=== PATIENT | female | born 1945 | race Caucasian/White ===

== ENCOUNTER 2023-03-07 08:00 | Outpatient (CLI) | payer MEDICARE | END 2023-03-07 23:59 | disposition home or self-care (01) | LOC: LAB.S 08:00 | PROVIDERS: ATTEND Physician Assistant | DX: R30.0 Dysuria (principal) | CPT/HCPCS: 87086 ==

== ENCOUNTER 2023-07-25 08:00 | Outpatient (CLI) | payer MEDICARE ==
[2023-07-25 20:16] LABS: BACTERIAL VAGINOSIS DNA NEGATIVE (NEGATIVE); CANDIDA GLABRATA DNA NEGATIVE (NEGATIVE); CANDIDA GROUP DNA NEGATIVE (NEGATIVE); CANDIDA KRUSEI DNA NEGATIVE (NEGATIVE); TRICHOMONAS VAGINALIS DNA NEGATIVE (NEGATIVE)
== END 2023-07-25 23:59 | disposition home or self-care (01) ==
LOC: LAB.S 08:00
PROVIDERS: ATTEND Registered Nurse
DX: R09.81 Nasal congestion (principal); N89.8 Other specified noninflammatory disorders of vagina
CPT/HCPCS: 81514

== ENCOUNTER 2023-07-30 08:00 | Outpatient (CLI) | payer MEDICARE ==
--- NOTE | 2023-07-30 08:17 | XRAY Report ---
PROCEDURE: Chest 2V INDICATIONS: COVID-19 INFECTION TECHNIQUE: 2 views of the chest were acquired. COMPARISON: None. FINDINGS: Surgical changes and devices: None. Lungs and pleura: No pleural effusions or pneumothorax. Lungs are clear. Mediastinum: Mediastinal contours appear normal. Heart size is normal. Bones and chest wall: No suspicious bony lesions. Overlying soft tissues appear unremarkable. IMPRESSION: No acute cardiopulmonary process. Reviewed by: Marcy Randle MD on 07/30/2023 8:15 AM [facility] [place] Approved by: Marcy Randle MD on 07/30/2023 8:15 AM [facility] [place] Station ID: [id number]
== END 2023-07-30 23:59 | disposition home or self-care (01) ==
LOC: DI.S 08:00
PROVIDERS: ATTEND Emergency Medicine
DX: U07.1 COVID-19 (principal)

== ENCOUNTER 2023-09-10 11:19 | Outpatient (CLI) | payer MEDICARE ==
[2023-09-10 15:35] LABS: BASOPHILS % (AUTO) 0.6 %; EOSINOPHILS # (AUTO) 0.1 10^3/uL (0.0-0.7); EOSINOPHILS % (AUTO) 1.4 %; HCT - HEMATOCRIT 37.7 % (37.0-47.0); HGB - HEMOGLOBIN 12.4 g/dL (12.0-16.0); LYMPHOCYTES # (AUTO) 1.8 10^3/uL (1.5-3.5); LYMPHOCYTES % (AUTO) 27.4 %; MEAN CORPUSCULAR HEMOGLOBIN 32.1 pg (27.0-31.0); MEAN CORPUSCULAR HGB CONC 32.9 g/dL (32.0-36.0); MEAN CORPUSCULAR VOLUME 97.7 fL (81.0-99.0); MEAN PLATELET VOLUME 10.2 fL (7.9-10.8); MONOCYTES # (AUTO) 0.6 10^3/uL (0.0-1.0); MONOCYTES % (AUTO) 8.7 %; NEUTROPHILS % (AUTO) 61.6 %; PLT - PLATELET COUNT 241 10^3/uL (130-450); RED BLOOD COUNT 3.86 10^6/uL (4.20-5.40); WHITE BLOOD COUNT 6.5 x10^3/uL (4.8-10.8)
[2023-09-10 15:51] LABS: ESTIMATED AVERAGE GLUCOSE 108 mg/dL (70-100); HEMOGLOBIN A1c% 5.4 % (4.27-6.07)
[2023-09-10 15:52] LABS: % IRON SATURATION 29 % (20-50); ALBUMIN 4.2 g/dL (3.2-5.5); ALBUMIN/GLOBULIN RATIO 1.8 (1.0-2.2); ALKALINE PHOSPHATASE 46 IU/L (42-121); ALT ALANINE AMINOTRANSFERASE 12 IU/L (10-60); AST ASPARTATE AMINOTRANSFERASE 21 IU/L (10-42); BILIRUBIN,TOTAL 0.6 mg/dL (0.2-1.0); BUN - BLOOD UREA NITROGEN 10 mg/dL (6-20); CALCIUM 9.2 mg/dL (8.5-10.3); CARBON DIOXIDE - CO2 28 mmol/L (21-32); CHLORIDE 98 mmol/L (101-111); CHOL/HDL RATIO 1.9 (<4.4); CHOLESTEROL 154 mg/dL; CREATININE 0.7 mg/dL (0.6-1.3); GFR - MDRD 81 (>89); GLUCOSE 95 mg/dL (74-104); HDL CHOLESTEROL 81 mg/dL; IRON 118 ug/dL (50-212); LDL CHOLESTEROL,CALCULATED 58 mg/dL; LDL/HDL RATIO 0.7 (<4.4); POTASSIUM 3.9 mmol/L (3.5-4.5); SODIUM 133 mmol/L (135-145); TOTAL IRON BINDING CAPACITY 403 ug/dL (250-450); TOTAL PROTEIN 6.5 g/dL (6.4-8.9); TRANSFERRIN 288 mg/dL (203-362); TRIGLYCERIDES 77 mg/dL (48-352); VLDL CHOLESTEROL 15 mg/dL
[2023-09-10 16:00] LABS: THYROID STIMULATING HORMONE 1.13 uIU/mL (0.34-5.60)
== END 2023-09-10 11:20 | disposition home or self-care (01) ==
LOC: LAB.S 11:19
PROVIDERS: ATTEND Internal Medicine
DX: D64.9 Anemia, unspecified (principal); R53.83 Other fatigue; Z13.1 Encounter for screening for diabetes mellitus; Z13.220 Encounter for screening for lipoid disorders
CPT/HCPCS: 36415; 80053; 80061; 82728; 83036; 83540; 83721; 84443; 84466; 85025

== ENCOUNTER 2023-12-19 14:31 | Outpatient (CLI) | payer MEDICARE | END 2023-12-19 14:32 | disposition home or self-care (01) | LOC: LAB.R 14:31 | DX: K52.832 Lymphocytic colitis (principal) | CPT/HCPCS: 83993 ==

== ENCOUNTER 2024-01-23 09:25 | Outpatient (CLI) | payer MEDICARE ==
--- NOTE | 2024-01-23 23:21 | XRAY Report ---
PROCEDURE: Cervical Spine 2-3V INDICATIONS: CERVICAL SPINE XRAY TECHNIQUE: 3 view(s) of the cervical spine were acquired. COMPARISON: None. FINDINGS: Bones: There is mild reversal of normal cervical lordosis centered at C4 level. 4 mm anterolisthesis of C3 on C4 is seen. Loss of disc height, degenerative endplate changes and bilateral uncovertebral h ypertrophic changes are seen at C3-4 through C6-7 levels. There is also 5 mm anterolisthesis of C7 on T1. No acute fracture or dislocation. The lateral masses of C1 appear intact on the odontoid view. No suspicious bony lesions. Soft tissues: No prevertebral soft tissue swelling. IMPRESSION: No displaced fracture or traumatic subluxation. Grade 1 spondylolisthesis at C3-4 and C7-T1 levels. D egenerative disc disease throughout cervical spine as above. Reviewed by: Michael Berger MD on 01/23/2024 11:20 PM PDT Approved by: Michael Berger MD on 01/23/2024 11:20 PM PDT Station ID: [id number]
== END 2024-01-23 09:26 | disposition home or self-care (01) ==
LOC: DI.S 09:25
PROVIDERS: ATTEND Registered Nurse
DX: M50.11 Cervical disc disorder with radiculopathy, high cervical region (principal); M50.121 Cervical disc disorder at C4-C5 level with radiculopathy; M50.122 Cervical disc disorder at C5-C6 level with radiculopathy; M50.123 Cervical disc disorder at C6-C7 level with radiculopathy; M43.12 Spondylolisthesis, cervical region; M43.13 Spondylolisthesis, cervicothoracic region

== ENCOUNTER 2024-03-09 12:26 | Outpatient (CLI) | payer MEDICARE | END 2024-03-09 23:59 | disposition critical access hospital (66) | LOC: EMS 12:26 | DX: I10 Essential (primary) hypertension (principal); R42 Dizziness and giddiness; R51.9 Headache, unspecified; R11.0 Nausea | CPT/HCPCS: A0425; A0429 ==

== ENCOUNTER 2024-03-09 12:58 | Inpatient (IN) | payer MEDICARE ==
--- NOTE | 2024-03-09 13:03 | ED Physician Documentation ---
History of Present Illness - Stated complaint Stated Complaint: HTN - Additonal information Additional information: Patient is a 79-year-old female presenting to the emergency department with headache and elevated blood pressure readings. Patient notes symptoms have been going on since 3 days ago. Patient denies any chest pain, shortness of breath. She notes her blood pressure readings have been high in the 170s. She notes overnight she developed neck pain and head pain. She is on lisinopril 20 once a day however took 2 doses last night due to persistently elevated blood pressure readings. She denies missing any doses of lisinopril. She denies any nausea vomiting vision changes lower leg swelling chest pain or shortness of breath associate with her symptoms. She has no history of coronary artery disease. She took meloxicam for her neck pain without significant relief. PD PAST MEDICAL HISTORY - Present Medications Home Medications: Ambulatory Orders Medication Instructions Recorded Confirmed Lisinopril [Zestril] 20 mg PO DAILY 03/09/24 03/09/24 Meloxicam [Mobic] 7.5 mg PO DAILY 03/09/24 03/09/24 - Allergies Allergies/Adverse Reactions: Allergies Allergy/AdvReac Type Severity Reaction Status Date / Time No Known Drug Allergies Allergy Verified 03/09/24 13:12 PD ED PE NORMAL - Vitals Vital signs reviewed: Yes - General General: Alert and oriented X 3 - HEENT HEENT: Atraumatic, PERRL, EOMI, Ears normal (Clear TMs bilaterally no signs of excessive cerumen no bulging or erythema to bilateral TMs.), Other - Neck Neck: Supple, no meningeal sign, Other (Full range of motion of neck reproducible tenderness to right paraspinal cervical muscle tenderness.) - Cardiac Cardiac: RRR, No murmur, No gallop, No rub - Respiratory Respiratory: No respiratory distress, Clear bilaterally - Abdomen Abdomen: Normal bowel sounds, Non tender, Non distended - Back Back: No CVA TTP - Derm Derm: Normal color, Warm and dry, No rash - Extremities Extremities: No deformity - Neuro Neuro: Alert and oriented X 3, natural remedy consultant 2-12 intact, No motor deficit, No sensory deficit, Normal speech, Other (Negative HINTs test. Finger to nose test intact) Eye Opening: Spontaneous Motor: Obeys Commands Verbal: Oriented GCS Score: 15 - Psych Psych: Normal mood, Normal affect Results - Vitals Vitals: Vital Signs - 24 hr 03/09/24 03/09/24 03/09/24 13:02 13:11 13:12 Temperature 36.5 C Heart Rate 78 78 68 Respiratory 16 14 15 Rate Blood Pressure 163/98 H 181/92 H 175/95 H O2 Saturation 98 98 99 03/09/24 15:12 Temperature Heart Rate 65 Respiratory 16 Rate Blood Pressure 161/93 H O2 Saturation 98 Oxygen O2 Source Room air - Labs Labs: Laboratory Tests 03/09/24 03/09/24 03/09/24 13:21 13:21 14:00 Sodium 120 L* Potassium 3.9 Chloride 87 L Carbon Dioxide 24 Anion Gap 9.0 BUN 7 Creatinine 0.6 Estimated GFR (MDRD) 97 Glucose 115 H Calcium 9.5 Magnesium 1.5 L Total Bilirubin 0.8 AST 29 ALT 15 Alkaline Phosphatase 45 Total Protein 6.7 Albumin 4.4 Globulin 2.3 Albumin/Globulin Ratio 1.9 Lipase 23 TSH 1.90 Urine Creatinine 14.9 Urine Sodium 54.0 PD Medical Decision Making - ED course Complexity details: reviewed old records, reviewed results ED course: Patient is a 79-year-old female presenting with past medical history of hypertension no history of alcohol abuse no history of smoking. Patient had headaches that worsened over the last 3 days and today is much worse than normal. She denies any focal neurodeficits she denies any fevers neck pain no difficulty walking. She reports some mild lightheadedness but no dizziness symptoms. Patient's sodium levels returned at 120. No signs of Hyperglycemia. Other electrolytes appear stable. Urine sodium and urine osmolality and serum osmolality labs added onto patient's workup. Patient received 500 cc of fluid here in emergency department however we will hold off on further normal saline treatment at this time while pending workup. CT head and chest x-ray of neck obtained given patient's sudden onset hyponatremia. Concern for possible mass or tumor causing the symptoms. Additionally TSH obtained showing no acute fin dings. CT head showed no acute intracranial findings. Additionally chest x-ray showed no acute cardiopulmonary findings. Patient pain persist despite Reglan and Benadryl treatment here in the emergency department. Patient given a dose of Toradol after blood pressure down trended to the 150s SBP. Discussed with hospitalist Dr. Crooks for admission given new onset hyponatremia. No acute cause for hyponatremia at this time. Patient's hypertension and hyponatremia require further workup that cannot be completed here in the emergency department. Departure - Departure Disposition: [facility] DC/Xfer Clinical Impression: Hyponatremia, Migraine, Hypertension Discharge Date/Time: 03/09/24 18:00
[2024-03-09] MEDS: diphenhydrAMINE INJ 50 MG/ML VIAL IVP STA (13:26)
[2024-03-09] MEDS: SODIUM CHLORIDE 0.9% 1,000 ML IV STA (13:26)
[2024-03-09] MEDS: METOCLOPRAMIDE 10 MG/2 ML VIAL IVP STA (13:27)
[2024-03-09 13:44] LABS: MAGNESIUM 1.5 mg/dL (1.7-2.3)
[2024-03-09 13:52] LABS: ALBUMIN 4.4 g/dL (3.2-5.5); ALBUMIN/GLOBULIN RATIO 1.9 (1.0-2.2); BILIRUBIN,TOTAL 0.8 mg/dL (0.2-1.0); CALCIUM 9.5 mg/dL (8.5-10.3); CREATININE 0.6 mg/dL (0.6-1.3); POTASSIUM 3.9 mmol/L (3.5-4.5); TOTAL PROTEIN 6.7 g/dL (6.4-8.9)
[2024-03-09 14:37] LABS: CREATININE,URINE 14.9 mg/dL
--- NOTE | 2024-03-09 15:56 | XRAY Report ---
PROCEDURE: Chest 1V INDICATIONS: HTN, cp TECHNIQUE: One view of the chest was acquired. COMPARISON: None FINDINGS: Surgical changes and devices: None. Lungs and pleura: No pleural effusions or pneumothorax. Lungs are clear. Mediastinum: Mediastinal contours appear normal. Heart size is normal. Bones and chest wall: No suspicious bony lesions. Overlying soft tissues appear unremarkable. IMPRESSION: No acute cardiopulmonary findings Reviewed by: Salvador Pritchard MD on 03/09/2024 2:55 PM [facility] Approved by: Salvador Pritchard MD on 03/09/2024 2:55 PM [facility] Station ID: [id number]
--- NOTE | 2024-03-09 15:57 | CT Report ---
PROCEDURE: Head WO INDICATIONS: evaluate for mass vs. demylinteation TECHNIQUE: Helical axial CT of the brain was obtained without contrast and reformatted in multiple p lanes. Radiation dose reduction was achieved using automated exposure control or adjustment of mA and /or kV according to patient size. COMPARISON: None FINDINGS: CSF spaces: Ventricles are appropriate in size and position. No hydrocephalus. Basal cisterns unre markable. Brain: No midline shift. No intracranial masses or hemorrhage. Lorenz-white matter interface is norm al. Skull and face: Calvarium and skull base are unremarkable without suspicious lesion. Sinuses: Visualized sinuses and mastoids are clear. IMPRESSION: Unremarkable CT of the brain Reviewed by: Salvador Pritchard MD on 03/09/2024 2:56 PM [facility] Approved by: Salvador Pritchard MD on 03/09/2024 2:56 PM [facility] Station ID: [id number]
[2024-03-09] MEDS ORDERED: ONDANSETRON ODT 4 MG TABLET TL PRN (17:04)
[2024-03-09] MEDS ORDERED: ONDANSETRON 4 MG/2 ML VIAL IVP PRN (17:04)
[2024-03-09] MEDS ORDERED: ACETAMINOPHEN 325 MG TABLET PO PRN (17:04)
[2024-03-09] MEDS ORDERED: hydrALAZINE INJ 20 MG/ML VIAL IVP PRN (17:09)
[2024-03-09] MEDS ORDERED: MAGNESIUM SULFATE 1 GM/2 ML VIAL IVP STA (17:12)
[2024-03-09] MEDS ORDERED: traZODone 50 MG TABLET PO STA (17:42)
--- NOTE | 2024-03-09 17:46 | HISTORY & PHYSICAL EXAMINATION ---
Chief Complaint - Chief Complaint Chief Complaint: Headache History of Present Illness - Admitted From Admitted From:: ED - History Obtained From Records Reviewed: ED History obtained from: Patient - History of Present Illness HPI Comment/Other: Ms. Gerardo is a 79-year-old female presenting to the emergency department with headache and elevated blood pressure readings. She states she woke up with a headache and elevated BP @ 197 systolic at 01:00 this am. She has nausea, no vomiting, with photohobia and left sided headache that radiates from the base of her skull to behind her right ear. She denies phonophobia, vision changes, aura, dizziness, shortness of breath, chest pain, palpitations, or abdominal pain. She states she had 3 BMs last night which is more than normal, denies diarrhea or constipation.Patient denies any chest pain, shortness of breath. She notes her blood pressure readings have been high in the 170s. She is on lisinopril 20 once a day however took 2 doses last night due to persistently elevated blood pressure readings. She denies missing any doses of lisinopril. 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 She had been taking trazadone 1.5 tabs at night for insomnia and depression and stopped this 3 days ago as she was told it was not compatible with meloxicam. She also has a new puppy which she got 4 days ago and it has been keeping her up at night. She reports feeling unusually tired yesterday and got some pedialyte as she was feeling run down. She denies any recent illness, weight loss, changes in diet, increase in thirst, urinary frequency, dysuria, or fever. She has a hx of migraine headaches and takes fiorinol with codeine but it only works if she takes it at the beginnin. They usually last 3 days when she gets them and she has about 4 per year once she was postmenopausal. She does not take any migraine prevention medication. She is being admitted for hyponatremia and will be on a fluid restriction. She still complains of a 5/10 headache, down from an 8/10, and feels significantly improved after getting Benadryl and Reglan in the ED along with a liter of fluid. History - Past Medical History Cardiovascular: reports: Hypertension GI: reports: Other (Microscopic colitis) JEWEL GRINDER: reports: Other Psych: reports: Depression, Other (Insomnia) Musculoskeletal: reports: Osteoarthritis (C3-C7 w/ radiculopathy) MRSA Hx?: No - Past Surgical History Ortho: reports: Knee replacement (left), Other (Left bunion correction) /JEWEL GRINDER: reports: Hysterectomy (Total) HEENT: reports: Tonsil/Adenoidectomy (As a child) - Family & Social History Family History: Mother: Living arrangement: At home Living Situation: Alone Social History Notes: Lives alone. Used to live with her mother before she . Sturggled with depression and anxiety after her mother's . Her son, Roberto Mcgee ([phone]) lives nearby in [place] and is her DPOA. She has a new puppy. - Substance History Use: Uses substance without health or social issues: Alcohol (Single wine spritzer most evenings) Abuse: Recurrent use of substance despite neg consequences: NONE Dependence: Experiences withdrawal or developed tolerances: NONE - POLST Patient has POLST: No POLST Status: Full Code (Roberto Mcgee (son) DPOA ([phone])) Meds/Allgy - Home Medications Home Medications: Ambulatory Orders Medication Instructions Recorded Confirmed Lisinopril [Zestril] 20 mg PO DAILY 03/09/24 03/09/24 Meloxicam [Mobic] 7.5 mg PO DAILY 03/09/24 03/09/24 - Allergies Allergies/Adverse Reactions: Allergies Allergy/AdvReac Type Severity Reaction Status Date / Time No Known Drug Allergies Allergy Verified 03/09/24 13:12 Review of Systems - Constitutional Constitutional: reports: Fatigue, Chills. denies: Fever, Weakness, Poor appetite, Weight loss - Eyes Eyes: denies: Pain, Blurred vision, Spots in vision, Vision loss - Ears, Nose & Throat Ears, Nose & Throat: denies: Ear pain, Tinnitus, Vertigo, Nasal discharge, Sore throat - Cardiovascular Cariovascular: denies: Palpitations, Chest pain, Edema, Lightheadedness, Syncope - Respiratory Respiratory: denies: Cough, Wheezing - Gastrointestinal Gastrointestinal: reports: Nausea. denies: Abdominal pain, Constipation, Diarrhea, Change in bowel habits, Rectal bleeding, Black stools, Vomiting - Genitourinary Genitourinary: denies: Dysuria, Frequency, Incontinence - Musculoskeletal Musculoskeletal: reports: Other (Neck pain). denies: Muscle pain, Joint pain - Integumentary Integumentary: denies: Rash, Pruritis, Lesions - Neurological Neurological: reports: Headache. denies: Focal weakness, Dizziness, Numbness, Memory problems, Seizures - Psychiatric Psychiatric: denies: Depression, Anxiety - Endocrine Endocrine: reports: Intolerance to cold, Intolerance to heat. denies: Polyuria, Polydypsia, Polyphagia - Hematologic/Lymphatic Hematologic/Lymphatic: reports: Anemia, Bruising. denies: Bleeding tendencies Prior Level of Functionality: Independent. Drives and cares for herself. Exam - Vital Signs Reviewed Vital Signs: Yes Vital Signs: Vital Signs x48h Temp Pulse Resp BP Pulse Ox 03/09/24 15:12 65 16 161/93 H 98 03/09/24 13:12 68 15 175/95 H 99 03/09/24 13:11 78 14 181/92 H 98 03/09/24 13:02 36.5 C 78 16 163/98 H 98 - Physical Exam General Appearance: positive: No acute distress, Alert, Other (79 year old thin woman) Eyes Bilateral: positive: Normal inspection, PERRL ENT: positive: No signs of dehydration Neck: positive: Thyroid nml, No JVD, Trachea midline, Other (Tenderness cervical paraspinal muscles on right) Respiratory: positive: Chest non-tender, No respiratory distress, Breath sounds nml. negative: Wheezes, Rales, Rhonchi Cardiovascular: positive: Regular rate & rhythm, No murmur, No gallop. negative: Tachycardia, Bradycardia Peripheral Pulses: positive: 2+ Abdomen: positive: Non-tender, No organomegaly, Nml bowel sounds, No distention. negative: Guarding, Rebound Back: positive: Nml inspection Skin: positive: Color nml, No rash, Warm, Dry Extremities: positive: Non-tender, Nml appearance, No pedal edema Neurologic/Psychiatric: positive: Oriented x3, CN's nml (2-12), Motor nml, Sensation nml, Mood/affect nml Sepsis Event Note (H) - Evaluation Current Stage of Sepsis: Ruled out Conclusion/Plan - Problem List (1) Migraine Conclusion/Plan: History of migraine headaches, left sided, for which she takes Fiorinol with codeine. This only works if she takes it at the beginning of a headache. Otherwise, they last for 3 days, sometimes with visual aura or visual disturbances. Since menopause, she gets about 4 migraines per year and is not on any preventive medication. Her headache today is consistent with her previous migraines, including nausea and photophobia, and started at 01:00. She recieved Benadryl, Reglan, and a 1L NS in the ED. She is feeling much better and rates her headache at a 5/10, down from an 8/10, and her nausea has resolved. I will give her Fioricet 1 tablet q 4 hrs PRN for her headache with PRN Reglan as needed for nausea. (2) Hyponatremia Conclusion/Plan: She is hyponatremic at 120, likely due to malnutrition and drinking lots of water. She denies any recent changes in urinary frequency or volume. She has not had any recent increases in thirst or changes in dietary habits. I will place her on a fluid restriction and monitor her sodium daily. (3) Hypertension Conclusion/Plan: History of HTN and takes lisinopril 20 mg daily. She reports systolic BP in the 170's over the past few days and 197 last night. She took a double dose of her lisinopril as she was very worried about the elevated BP last night. BP was 181/92 in the ED. It has come down to 150/87 with management of her headache and fluids. I will continue her lisinopril 20 mg QD and PRN labetolol 10 mg IVP q 6 hrs for systolic BP >180. I will also work to manage her neck pain and headache which are likely contributing to her hypertension. (4) Cervical radiculopathy Conclusion/Plan: Diagnosed with cervical arthritis with radiculopathy C3-C7 with x-ray on 01/22/24. She was started on meloxicam 7.5 mg QD and took her first dose yesterday evening. She was told to stop taking her trazadone when she started taking the meloxicam and stopped this 3 days ago. I will continue her meloxicam and start her on methocarbamol 1,000 mg q 8 hrs for muscle tension. (5) Hypomagnesemia Conclusion/Plan: She is noted to have a low magnesium at 1.5 mg. I will replace this orally and recheck it tomorrow. (6) Insomnia Conclusion/Plan: She reports disrupted sleep for the past 3 mights due to her new puppy. She also stopped her trazadone, which she was taking 1.5 tabs at night, 3 days ago. She took the trazadone for her insomnia and anxiety and it worked well for her. Disrputed sleep may have triggered her migraine headache and elevated BP. There is not contraindication for trazadone with meloxicam so I will restart her evening trazadone at 75 mg q HS. (7) Protein-calorie malnutrition, moderate Conclusion/Plan: She is thin with a BMI of 18.9. She reports eating lots of salads, fuits and v egetables and drinking lots of water. She gets her protein from eggs, chicken, fish and nuts. It is likely that inadequate intake combined with lots of water underlies her hyponatremia. I will order a regular diet and have her consult with nutrition. - Lab Results Fish Bones: 03/10/24 04:48 03/10/24 04:48 - Diagnostic Imaging Results Diagnostic Imaging Results: positive: Final report reviewed Diagnostic Imaging Results Comments: Head CT: No abnormal findings CXR: no abnormal findings Core Measures - Anticipated LOS I expect patient to be DC'd or transferred within 96 hours.: Yes - DVT/VTE - Prophylaxis VTE/DVT Device ordered at admit?: No VTE/DVT Prophylaxis med ordered at admit?: Yes
[2024-03-09] MEDS ORDERED: SODIUM CHLORIDE 0.9% 1,000 ML IV SCH (18:00)
[2024-03-09] MEDS: BUTALB/ACETAM/CAFF 50/325/40MG TABLET PO PRN (18:25)
[2024-03-09] MEDS: methocarbamoL 500 MG TABLET PO PRN (18:25)
[2024-03-09] MEDS: MAGNESIUM OXIDE 400 MG TABLET PO SCH (18:51)
[2024-03-09] MEDS: LABETALOL 20 MG/4 ML SYRINGE IVP SCH (18:52)
[2024-03-09] MEDS: traZODone 50 MG TABLET PO SCH (20:38)
[2024-03-09] MEDS: DESMOPRESSIN 4 MCG/ML AMP IVP SCH (21:50)
[2024-03-09] MEDS: SODIUM CHLORIDE FLUSH 0.9% 10 ML SYRINGE IVP PRN (21:50)
[2024-03-09] MEDS: SODIUM CHLORIDE 0.9% 500 ML IV ONE (22:15)
[2024-03-10 05:22] LABS: BASOPHILS % (AUTO) 0.6 %; EOSINOPHILS # (AUTO) 0.1 10^3/uL (0.0-0.7); EOSINOPHILS % (AUTO) 0.9 %; HCT - HEMATOCRIT 32.9 % (37.0-47.0); HGB - HEMOGLOBIN 11.7 g/dL (12.0-16.0); LYMPHOCYTES # (AUTO) 1.9 10^3/uL (1.5-3.5); LYMPHOCYTES % (AUTO) 34.9 %; MEAN CORPUSCULAR HEMOGLOBIN 33.1 pg (27.0-31.0); MEAN CORPUSCULAR HGB CONC 35.6 g/dL (32.0-36.0); MEAN CORPUSCULAR VOLUME 93.2 fL (81.0-99.0); MEAN PLATELET VOLUME 9.3 fL (7.9-10.8); MONOCYTES # (AUTO) 0.7 10^3/uL (0.0-1.0); MONOCYTES % (AUTO) 13.7 %; NEUTROPHILS # (AUTO) 2.7 10^3/uL (1.5-6.6); NEUTROPHILS % (AUTO) 49.7 %; PLT - PLATELET COUNT 203 10^3/uL (130-450); RED BLOOD COUNT 3.53 10^6/uL (4.20-5.40); RED CELL DISTRIBUTION WIDTH 13.1 % (12.0-15.0); WHITE BLOOD COUNT 5.4 x10^3/uL (4.8-10.8)
[2024-03-10 05:31] LABS: ALBUMIN 3.5 g/dL (3.2-5.5); CALCIUM 8.3 mg/dL (8.5-10.3); CREATININE 0.6 mg/dL (0.6-1.3); MAGNESIUM 1.7 mg/dL (1.7-2.3); PHOSPHORUS 3.2 mg/dL (2.5-5.0); POTASSIUM 3.8 mmol/L (3.5-4.5)
[2024-03-10 05:49] LABS: THYROID STIMULATING HORMONE 2.04 uIU/mL (0.34-5.60)
[2024-03-10] MEDS: SODIUM CHLORIDE FLUSH 0.9% 10 ML SYRINGE IVP SCH (06:15)
[2024-03-10] MEDS: MELOXICAM 7.5 MG TABLET PO SCH (08:20)
[2024-03-10] MEDS: ENOXAPARIN 40 MG/0.4 ML SYRINGE SUBQ SCH (08:20)
[2024-03-10] MEDS ORDERED: lisinopriL 20 MG TABLET PO SCH (09:00)
--- NOTE | 2024-03-10 10:17 | PROVIDER PROGRESS NOTE ---
Subjective - Prog Note Date Prog Note Date: 03/10/24 Prog Note Time: 08:45 - Subjective Pt reports feeling: No change Subjective: Ms. Gerardo is a 79-year-old female presenting to the emergency department with headache and elevated blood pressure readings yesterday. She states she woke up with a headache and elevated BP @ 197 systolic at 01:00 on 03/09. She had nausea, no vomiting, with photohobia and left sided headache that radiated from the base of her skull to behind her right ear. She denies phonophobia, vision changes, a ura, dizziness, shortness of breath, chest pain, palpitations, or abdominal pain. She states she had 3 BMs last night which is more than normal, denies diarrhea or constipation. Patient denies any chest pain, shortness of breath. She notes her blood pressure readings have been high in the 170s. She is on lisinopril 20 once a day however took 2 doses last night due to persistently elevated blood pressure readings. She denies missing any doses of lisinopril. 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 She had been taking trazadone 1.5 tabs at night for insomnia and depression and stopped this 3 days ago as she was told it was not compatible with meloxicam. She also has a new puppy which she got 4 days ago and it has been keeping her up at night. She reported feeling unusually tired 03/08 and got some pedialyte as she was feeling run down. She denies any recent illness, weight loss, changes in diet, increase in thirst, urinary frequency, dysuria, or fever. She has a hx of migraine headaches and takes fiorinol with codeine but it only works if she takes it at the beginning. They usually last 3 days when she gets them and she has had about 4 per year once she was postmenopausal. She does not take any migraine prevention medication. She was being admitted for hyponatremia and on a fluid restriction. She felt significantly improved after getting Benadryl and Reglan in the ED along with a liter of fluid. Last night, she recieved additional fluids as her BP was low, likely due to her double dose of lisinopril. Her sodium corrected too fast from 120 to 130 and DDAVP was given. Today, she is oriented and continues to have a headache, reports it has increased again, right sided, from behind her eye to the base of her skull with increasing photophobia. She denies nausea and has no focal neuro deficits. She denies chest pain, shortness of breath, abdominal pain, diarrhea, dysuria, fever, or chills. Current Medications - Current Medications Current Medications: Active Medications Generic Name Dose Route Start Last Admin Trade Name Freq PRN Reason Stop Dose Admin Acetaminophen 650 mg 03/09/24 17:04 Acetaminophen 325 Mg Tablet PO Q4HR PRN Pain 1 to 4, or Fever Acetaminophen/Butalbital/Caffeine 1 tab 03/09/24 17:39 03/10/24 08:20 Butalb/Acetam/Caff 50/325/40mg Tablet PO 1 tab Q4H PRN Administration HEADACHE Desmopressin Acetate 2 mcg 03/09/24 22:00 03/09/24 21:50 Desmopressin 4 Mcg/Ml Amp IVP 03/10/24 21:59 2 mcg ONCE USAMA Administration Enoxaparin Sodium 40 mg 03/10/24 09:00 03/10/24 08:20 Enoxaparin 40 Mg/0.4 Ml Syringe SUBQ 40 mg DAILY USAMA Administration Labetalol HCl 10 mg 03/09/24 18:00 03/10/24 06:22 Labetalol 20 Mg/4 Ml Syringe IVP Not Given Q6H USAMA Magnesium Oxide 400 mg 03/09/24 19:00 03/10/24 08:20 Magnesium Oxide 400 Mg Tablet PO 400 mg DAILYWM USAMA Administration Meloxicam 7.5 mg 03/10/24 09:00 03/10/24 08:20 Meloxicam 7.5 Mg Tablet PO 7.5 mg DAILY USAMA Administration Methocarbamol 1,000 mg 03/09/24 17:41 03/09/24 18:25 Methocarbamol 500 Mg Tablet PO 1,000 mg Q8H PRN Administration HEADACHE Metoclopramide HCl 10 mg 03/09/24 17:47 Metoclopramide 10 Mg/2 Ml Vial IVP Q6H PRN HEADACHE Ondansetron HCl 4 mg 03/09/24 17:04 Ondansetron Odt 4 Mg Tablet TL Q6HR PRN Nausea / Vomiting Ondansetron HCl 4 mg 03/09/24 17:04 Ondansetron 4 Mg/2 Ml Vial IVP Q6HR PRN Nausea / Vomiting Sodium Chloride 10 ml 03/09/24 17:04 03/09/24 21:50 Sodium Chloride Flush 0.9% 10 Ml Syringe IVP 10 ml PRN PRN Administration NEEDED PER PROVIDER ORDERS Sodium Chloride 10 ml 03/10/24 01:00 03/10/24 08:21 Sodium Chloride Flush 0.9% 10 Ml Syringe IVP 10 ml 0100,0900,1700 USAMA Administration Trazodone HCl 75 mg 03/09/24 21:00 03/09/24 20:38 Trazodone 50 Mg Tablet PO 75 mg QPM USAMA Administration Lisinopril [Zestril] 20 mg PO DAILY 03/09/24 Meloxicam [Mobic] 7.5 mg PO DAILY 03/09/24 Objective - Vital Signs/Intake & Output Reviewed Vital Signs: Yes Vital Signs: Vital Signs x48h Temp Pulse Resp BP Pulse Ox 03/10/24 07:17 36.6 C 73 16 138/73 H 98 03/10/24 06:09 36.7 C 65 14 123/78 97 Intake & Output: Intake & Output 03/07/24 03/08/24 03/09/24 03/10/24 23:59 23:59 23:59 23:59 Intake Total 1750 100 Balance 1750 100 - Objective General Appearance: positive: No acute distress, Alert (Thin 79 y/o female) Eyes Bilateral: positive: Normal inspection Neck: positive: No JVD, Trachea midline, Other (Tenderness to palpation right lateral neck muscles) Respiratory: positive: Chest non-tender, No respiratory distress, Breath sounds nml. negative: Wheezes, Rales, Rhonchi Cardiovascular: positive: Regular rate & rhythm, No murmur, No gallop Peripheral Pulses: 2+ Radial (R), 2+ Radial (L), 2+ Dorsalis pedis (R), 2+ Dorsalis pedis (L) Abdomen: positive: Non-tender, No organomegaly, Nml bowel sounds, No distention. negative: Guarding, Rebound Back: positive: Nml inspection Skin: positive: Color nml, No rash, Warm, Dry Extremities: positive: Nml appearance, No pedal edema Neurologic/Psychiatric: positive: Oriented x3, CN's nml (2-12), Motor nml, Sensation nml, Mood/affect nml - Lab Results Fish Bones: 03/10/24 04:48 03/10/24 08:14 Other Labs: Lab Results x24hrs 03/10/24 03/10/24 03/10/24 Range/Units 08:14 04:48 04:48 WBC 5.4 (4.8-10.8) x10^3/uL RBC 3.53 L (4.20-5.40) 10^6/uL Hgb 11.7 L (12.0-16.0) g/dL Hct 32.9 L (37.0-47.0) % MCV 93.2 (81.0-99.0) fL MCH 33.1 H (27.0-31.0) pg MCHC 35.6 (32.0-36.0) g/dL RDW 13.1 (12.0-15.0) % Plt Count 203 (130-450) 10^3/uL MPV 9.3 (7.9-10.8) fL Neut # (Auto) 2.7 (1.5-6.6) 10^3/uL Lymph # (Auto) 1.9 (1.5-3.5) 10^3/uL [place] # (Auto) 0.7 (0.0-1.0) 10^3/uL Eos # (Auto) 0.1 (0.0-0.7) 10^3/uL Baso # (Auto) 0.0 (0.0-0.1) 10^3/uL Absolute Nucleated RBC 0.00 x10^3/uL Nucleated RBC % 0.0 /100WBC Sodium 128 L 128 L (135-145) mmol/L Potassium (3.5-4.5) mmol/L Chloride (101-111) mmol/L Carbon Dioxide (21-32) mmol/L Anion Gap (6-13) BUN (6-20) mg/dL Creatinine (0.6-1.3) mg/dL Estimated GFR (MDRD) (>89) Glucose (74-104) mg/dL Calcium (8.5-10.3) mg/dL Phosphorus (2.5-5.0) mg/dL Magnesium (1.7-2.3) mg/dL Total Bilirubin (0.2-1.0) mg/dL AST (10-42) IU/L ALT (10-60) IU/L Alkaline Phosphatase (42-121) IU/L Total Protein (6.4-8.9) g/dL Albumin (3.2-5.5) g/dL Globulin (2.1-4.2) g/dL Albumin/Globulin Ratio (1.0-2.2) Lipase (11-82) U/L TSH (0.34-5.60) uIU/mL Cortisol AM Sample ug/dL Urine Creatinine mg/dL Urine Sodium mmol/L 03/10/24 03/10/24 03/09/24 Range/Units 04:48 00:17 21:18 WBC (4.8-10.8) x10^3/uL RBC (4.20-5.40) 10^6/uL Hgb (12.0-16.0) g/dL Hct (37.0-47.0) % MCV (81.0-99.0) fL MCH (27.0-31.0) pg MCHC (32.0-36.0) g/dL RDW (12.0-15.0) % Plt Count (130-450) 10^3/uL MPV (7.9-10.8) fL Neut # (Auto) (1.5-6.6) 10^3/uL Lymph # (Auto) (1.5-3.5) 10^3/uL [place] # (Auto) (0.0-1.0) 10^3/uL Eos # (Auto) (0.0-0.7) 10^3/uL Baso # (Auto) (0.0-0.1) 10^3/uL Absolute Nucleated RBC x10^3/uL Nucleated RBC % /100WBC Sodium 128 L 129 L 128 L (135-145) mmol/L Potassium 3.8 (3.5-4.5) mmol/L Chloride 98 L (101-111) mmol/L Carbon Dioxide 25 (21-32) mmol/L Anion Gap 5.0 L (6-13) BUN 9 (6-20) mg/dL Creatinine 0.6 (0.6-1.3) mg/dL Estimated GFR (MDRD) 97 (>89) Glucose 107 H (74-104) mg/dL Calcium 8.3 L (8.5-10.3) mg/dL Phosphorus 3.2 (2.5-5.0) mg/dL Magnesium 1.7 (1.7-2.3) mg/dL Total Bilirubin (0.2-1.0) mg/dL AST (10-42) IU/L ALT (10-60) IU/L Alkaline Phosphatase (42-121) IU/L Total Protein (6.4-8.9) g/dL Albumin 3.5 (3.2-5.5) g/dL Globulin (2.1-4.2) g/dL Albumin/Globulin Ratio (1.0-2.2) Lipase (11-82) U/L TSH 2.04 (0.34-5.60) uIU/mL Cortisol AM Sample 9.9 ug/dL Urine Creatinine mg/dL Urine Sodium mmol/L 03/09/24 03/09/24 03/09/24 Range/Units 20:29 14:00 13:21 WBC (4.8-10.8) x10^3/uL RBC (4.20-5.40) 10^6/uL Hgb (12.0-16.0) g/dL Hct (37.0-47.0) % MCV (81.0-99.0) fL MCH (27.0-31.0) pg MCHC (32.0-36.0) g/dL RDW (12.0-15.0) % Plt Count (130-450) 10^3/uL MPV (7.9-10.8) fL Neut # (Auto) (1.5-6.6) 10^3/uL Lymph # (Auto) (1.5-3.5) 10^3/uL [place] # (Auto) (0.0-1.0) 10^3/uL Eos # (Auto) (0.0-0.7) 10^3/uL Baso # (Auto) (0.0-0.1) 10^3/uL Absolute Nucleated RBC x10^3/uL Nucleated RBC % /100WBC Sodium 130 L (135-145) mmol/L Potassium (3.5-4.5) mmol/L Chloride (101-111) mmol/L Carbon Dioxide (21-32) mmol/L Anion Gap (6-13) BUN (6-20) mg/dL Creatinine (0.6-1.3) mg/dL Estimated GFR (MDRD) (>89) Glucose (74-104) mg/dL Calcium (8.5-10.3) mg/dL Phosphorus (2.5-5.0) mg/dL Magnesium (1.7-2.3) mg/dL Total Bilirubin (0.2-1.0) mg/dL AST (10-42) IU/L ALT (10-60) IU/L Alkaline Phosphatase (42-121) IU/L Total Protein (6.4-8.9) g/dL Albumin (3.2-5.5) g/dL Globulin (2.1-4.2) g/dL Albumin/Globulin Ratio (1.0-2.2) Lipase (11-82) U/L TSH 1.90 (0.34-5.60) uIU/mL Cortisol AM Sample ug/dL Urine Creatinine 14.9 mg/dL Urine Sodium 54.0 mmol/L 03/09/24 Range/Units 13:21 WBC (4.8-10.8) x10^3/uL RBC (4.20-5.40) 10^6/uL Hgb (12.0-16.0) g/dL Hct (37.0-47.0) % MCV (81.0-99.0) fL MCH (27.0-31.0) pg MCHC (32.0-36.0) g/dL RDW (12.0-15.0) % Plt Count (130-450) 10^3/uL MPV (7.9-10.8) fL Neut # (Auto) (1.5-6.6) 10^3/uL Lymph # (Auto) (1.5-3.5) 10^3/uL [place] # (Auto) (0.0-1.0) 10^3/uL Eos # (Auto) (0.0-0.7) 10^3/uL Baso # (Auto) (0.0-0.1) 10^3/uL Absolute Nucleated RBC x10^3/uL Nucleated RBC % /100WBC Sodium 120 L* (135-145) mmol/L Potassium 3.9 (3.5-4.5) mmol/L Chloride 87 L (101-111) mmol/L Carbon Dioxide 24 (21-32) mmol/L Anion Gap 9.0 (6-13) BUN 7 (6-20) mg/dL Creatinine 0.6 (0.6-1.3) mg/dL Estimated GFR (MDRD) 97 (>89) Glucose 115 H (74-104) mg/dL Calcium 9.5 (8.5-10.3) mg/dL Phosphorus (2.5-5.0) mg/dL Magnesium 1.5 L (1.7-2.3) mg/dL Total Bilirubin 0.8 (0.2-1.0) mg/dL AST 29 (10-42) IU/L ALT 15 (10-60) IU/L Alkaline Phosphatase 45 (42-121) IU/L Total Protein 6.7 (6.4-8.9) g/dL Albumin 4.4 (3.2-5.5) g/dL Globulin 2.3 (2.1-4.2) g/dL Albumin/Globulin Ratio 1.9 (1.0-2.2) Lipase 23 (11-82) U/L TSH (0.34-5.60) uIU/mL Cortisol AM Sample ug/dL Urine Creatinine mg/dL Urine Sodium mmol/L ABX Reporting Has patient been on IV antibiotics over the past 48 hours?: Yes Sepsis Event Note (H) - Evaluation Current Stage of Sepsis: Ruled out Assessment/Plan - Problem List (1) Migraine Impression: History of migraine headaches, right sided, for which she takes Fiorinol with codeine. This only works if she takes it at the beginning of a headache. Otherwise, they last for 3 days, sometimes with visual aura or visual disturbances. Since menopause, she gets about 4 migraines per year and is not on any preventive medication. Her headache is consistent with her previous migraines, including nausea and photophobia, and started at 01:00 on 03/09. She recieved Benadryl, Reglan, and a 1L NS in the ED on 03/09. She is felt much better and rated her headache at a 5/10, down from an 8/10, and her nausea has resolved. She has Fioricet 1 tablet q 4 hrs PRN for her headache with PRN Reglan as needed for nausea. Today, she states her headache has increased and radiates from the base of her skull to the right side of her head behind her eye with worsening photophobia. She has not had any Fioricet or Reglan today. I will continue her medications today and expect her headache may persist for another day based on her history. (2) Hyponatremia Impression: She was hyponatremic at 120, likely due to malnutrition and drinking lots of water, on 03/09. She denies any recent changes in urinary frequency or volume. She has not had any recent increases in thirst or changes in dietary habits. She is on fluid restrictions. Her BP dropped overnight and she was given fluids, likely due to her double dose of lisinopril. Her sodium jumped to 130 and she was given DDAVP to control the increase. Her urine sodium was 54, TSH and cortisol were normal, making decreased dietary intake and malnutrition the most likely cause of her hyponatremia. She has no acute neuro findings or changes in mentation. I will continue her fluid restriction and monitor her sodium. (3) Hypertension Impression: History of HTN and takes lisinopril 20 mg daily. She reports systolic BP in the 170's over the past few days and 197 the night of 03/08. She took a double dose of her lisinopril as she was very worried about the elevated BP last night. BP was 181/92 in the ED. It has come down to 150/87 with management of her headache and fluids. I will continue her lisinopril 20 mg QD and PRN labetolol 10 mg IVP q 6 hrs for systolic BP >180. I will also work to manage her neck pain and headache which are likely contributing to her hypertension. Her BP dropped overnight, likely due to her double dose of lisinopril. She received fluids and it has been stable today. (4) Cervical radiculopathy Impression: Diagnosed with cervical arthritis with radiculopathy C3-C7 with x-ray on 01/22/24. She was started on meloxicam 7.5 mg QD and took her first dose yesterday evening. She was told to stop taking her trazadone when she started taking the meloxicam and stopped this 3 days ago. I will continue her meloxicam and start h er on methocarbamol 1,000 mg q 8 hrs for muscle tension. (5) Hypomagnesemia Impression: Resolved. She was noted to have a low magnesium at 1.5 mg on admission. This was replaced orally and it was 1.7 today. (6) Insomnia Impression: She reports disrupted sleep for the past 3 mights due to her new puppy prior to her admission. She also stopped her trazadone, which she was taking 1.5 tabs at night, 3 days before admission. She took the trazadone for her insomnia and anxiety and it worked well for her. Disrupted sleep may have triggered her migraine headache and elevated BP. There is not contraindication for trazadone with meloxicam so I will restart her evening trazadone at 75 mg q HS. She states the trazadone improved her sleep last night. I will continue it. (7) Protein-calorie malnutrition, moderate Impression: She is thin with a BMI of 18.9. She reports eating lots of salads, fuits and vegetables and drinking lots of water. She gets her protein from eggs, chicken, fish and nuts. It is likely that inadequate intake combined with lots of water underlies her hyponatremia. I will order a regular diet and have her consult with nutrition.
[2024-03-10] MEDS: METOCLOPRAMIDE 10 MG/2 ML VIAL IVP PRN (10:49)
[2024-03-10] MEDS ORDERED: LABETALOL 20 MG/4 ML SYRINGE IVP PRN (13:40)
--- NOTE | 2024-03-10 16:05 | PHARMACY PROGRESS NOTE ---
- Best Possible Medication History Admit Date and Time: 03/09/24 0239 Processed by: Pharmacy Medications reviewed in ED?: No Medication History completed: Yes Patient Interview: Completed Secondary Source(s): Pharmacy records, Insurance records As the person ultimately responsible for medication therapy, providers are able to order a medication from an existing home medication list in [facility] via the "Reconcile Routine" prior to Confirmation of that medication by family readiness support assistant. Such practice is discouraged except when the physician, in their clinical judgment, deems that a medical need exists for a medication without regard to previous use.
[2024-03-11 06:21] LABS: BASOPHILS % (AUTO) 0.8 %; EOSINOPHILS # (AUTO) 0.1 10^3/uL (0.0-0.7); EOSINOPHILS % (AUTO) 2.7 %; HGB - HEMOGLOBIN 11.6 g/dL (12.0-16.0); LYMPHOCYTES # (AUTO) 2.6 10^3/uL (1.5-3.5); LYMPHOCYTES % (AUTO) 49.4 %; MEAN CORPUSCULAR HEMOGLOBIN 32.1 pg (27.0-31.0); MEAN CORPUSCULAR HGB CONC 34.1 g/dL (32.0-36.0); MEAN CORPUSCULAR VOLUME 94.2 fL (81.0-99.0); MEAN PLATELET VOLUME 9.2 fL (7.9-10.8); MONOCYTES # (AUTO) 0.6 10^3/uL (0.0-1.0); MONOCYTES % (AUTO) 11.2 %; NEUTROPHILS # (AUTO) 1.9 10^3/uL (1.5-6.6); NEUTROPHILS % (AUTO) 35.7 %; PLT - PLATELET COUNT 205 10^3/uL (130-450); RED BLOOD COUNT 3.61 10^6/uL (4.20-5.40); RED CELL DISTRIBUTION WIDTH 12.8 % (12.0-15.0); WHITE BLOOD COUNT 5.2 x10^3/uL (4.8-10.8)
[2024-03-11 08:50] LABS: ALBUMIN 3.4 g/dL (3.2-5.5); CALCIUM 7.9 mg/dL (8.5-10.3); CREATININE 0.6 mg/dL (0.6-1.3); MAGNESIUM 1.6 mg/dL (1.7-2.3); PHOSPHORUS 2.3 mg/dL (2.5-5.0); POTASSIUM 3.4 mmol/L (3.5-4.5)
[2024-03-11] MEDS: SODIUM CHLORIDE 1 GM TABLET PO SCH (09:04)
--- NOTE | 2024-03-11 13:21 | PROVIDER PROGRESS NOTE ---
Subjective - Prog Note Date Prog Note Date: 03/11/24 Prog Note Time: 13:15 - Subjective Pt reports feeling: Improved Subjective: The patient is up ambulating about her room. She says that she is feeling much better this morning. She denies fever or chills. No chest pain or heart palpitations. Her headache is much improved. Blood pressure is improved. She has had no nausea vomiting or diarrhea. No urinary complaints. Unfortunately her sodium level actually went all the way down to 124. We discussed keeping her in the hospital for further treatment. She is understandably disappointed but is in agreement Current Medications - Current Medications Current Medications: Active Medications Generic Name Dose Route Start Last Admin Trade Name Freq PRN Reason Stop Dose Admin Acetaminophen 650 mg 03/09/24 17:04 Acetaminophen 325 Mg Tablet PO Q4HR PRN Pain 1 to 4, or Fever Acetaminophen/Butalbital/Caffeine 1 tab 03/09/24 17:39 03/10/24 19:40 Butalb/Acetam/Caff 50/325/40mg Tablet PO 1 tab Q4H PRN Administration HEADACHE Enoxaparin Sodium 40 mg 03/10/24 09:00 03/11/24 08:08 Enoxaparin 40 Mg/0.4 Ml Syringe SUBQ Not Given DAILY USAMA Labetalol HCl 10 mg 03/10/24 13:40 Labetalol 20 Mg/4 Ml Syringe IVP Q6H PRN HIGH BLOOD PRESSURE Magnesium Oxide 400 mg 03/09/24 19:00 03/11/24 08:07 Magnesium Oxide 400 Mg Tablet PO 400 mg DAILYWM USAMA Administration Meloxicam 7.5 mg 03/10/24 09:00 03/11/24 08:07 Meloxicam 7.5 Mg Tablet PO 7.5 mg DAILY USAMA Administration Methocarbamol 1,000 mg 03/09/24 17:41 03/11/24 08:07 Methocarbamol 500 Mg Tablet PO 1,000 mg Q8H PRN Administration HEADACHE Metoclopramide HCl 10 mg 03/09/24 17:47 03/10/24 10:49 Metoclopramide 10 Mg/2 Ml Vial IVP 10 mg Q6H PRN Administration HEADACHE Ondansetron HCl 4 mg 03/09/24 17:04 Ondansetron Odt 4 Mg Tablet TL Q6HR PRN Nausea / Vomiting Ondansetron HCl 4 mg 03/09/24 17:04 Ondansetron 4 Mg/2 Ml Vial IVP Q6HR PRN Nausea / Vomiting Sodium Chloride 10 ml 03/09/24 17:04 03/09/24 21:50 Sodium Chloride Flush 0.9% 10 Ml Syringe IVP 10 ml PRN PRN Administration NEEDED PER PROVIDER ORDERS Sodium Chloride 10 ml 03/10/24 01:00 03/11/24 08:08 Sodium Chloride Flush 0.9% 10 Ml Syringe IVP 10 ml 0100,0900,1700 USAMA Administration Sodium Chloride 1 gm 03/11/24 09:00 03/11/24 09:04 Sodium Chloride 1 Gm Tablet PO 1 gm TID USAMA Administration Trazodone HCl 75 mg 03/09/24 21:00 03/10/24 20:48 Trazodone 50 Mg Tablet PO 75 mg QPM USAMA Administration Lisinopril [Zestril] 20 mg PO DAILY 03/09/24 Estrogens, Conjugated [Premarin] 0.625 mg PO DAILY PM 03/10/24 traZODone [Desyrel] 75 mg PO DAILY 03/10/24 Objective - Vital Signs/Intake & Output Reviewed Vital Signs: Yes Vital Signs: Vital Signs x48h Temp Pulse Resp BP Pulse Ox 03/11/24 08:20 36.4 C L 75 18 147/79 H 96 Intake & Output: Intake & Output 03/08/24 03/09/24 03/10/24 03/11/24 23:59 23:59 23:59 23:59 Intake Total 9863 863 7775 Output Total 255 2305 Balance 1750 635 -163 - Objective General Appearance: positive: No acute distress, Other ( The patient is extremely thin) Eyes Bilateral: positive: Normal inspection ENT: positive: ENT inspection nml, Other (She has bitemporal muscle wasting bilaterally) Respiratory: positive: Chest non-tender, No respiratory distress, Breath sounds nml. negative: Wheezes, Rales, Rhonchi Cardiovascular: positive: Regular rate & rhythm, No murmur, No gallop. negative: Friction rub Abdomen: positive: Non-tender, No organomegaly, Nml bowel sounds Skin: positive: Color nml, No rash, Warm, Dry Extremities: positive: Non-tender, Full ROM Neurologic/Psychiatric: positive: Oriented x3, CN's nml (2-12) - Lab Results Fish Bones: 03/11/24 05:58 03/11/24 10:58 Other Labs: Lab Results x24hrs 03/11/24 03/11/24 03/11/24 Range/Units 10:58 06:30 05:58 WBC (4.8-10.8) x10^3/uL RBC (4.20-5.40) 10^6/uL Hgb (12.0-16.0) g/dL Hct (37.0-47.0) % MCV (81.0-99.0) fL MCH (27.0-31.0) pg MCHC (32.0-36.0) g/dL RDW (12.0-15.0) % Plt Count (130-450) 10^3/uL MPV (7.9-10.8) fL Neut # (Auto) (1.5-6.6) 10^3/uL Lymph # (Auto) (1.5-3.5) 10^3/uL [place] # (Auto) (0.0-1.0) 10^3/uL Eos # (Auto) (0.0-0.7) 10^3/uL Baso # (Auto) (0.0-0.1) 10^3/uL Absolute Nucleated RBC x10^3/uL Nucleated RBC % /100WBC Sodium 127 L 124 L Not Reportable Potassium 3.4 L Not Reportable Chloride 93 L Not Reportable Carbon Dioxide 24 Not Reportable Anion Gap 7.0 Not Reportable BUN 7 Not Reportable Creatinine 0.6 Not Reportable Estimated GFR (MDRD) 97 Not Reportable Glucose 134 H Not Reportable Calcium 7.9 L Not Reportable Phosphorus 2.3 L (2.5-5.0) mg/dL Magnesium 1.6 L (1.7-2.3) mg/dL Albumin 3.4 (3.2-5.5) g/dL 03/11/24 Range/Units 05:58 WBC 5.2 (4.8-10.8) x10^3/uL RBC 3.61 L (4.20-5.40) 10^6/uL Hgb 11.6 L (12.0-16.0) g/dL Hct 34.0 L (37.0-47.0) % MCV 94.2 (81.0-99.0) fL MCH 32.1 H (27.0-31.0) pg MCHC 34.1 (32.0-36.0) g/dL RDW 12.8 (12.0-15.0) % Plt Count 205 (130-450) 10^3/uL MPV 9.2 (7.9-10.8) fL Neut # (Auto) 1.9 (1.5-6.6) 10^3/uL Lymph # (Auto) 2.6 (1.5-3.5) 10^3/uL [place] # (Auto) 0.6 (0.0-1.0) 10^3/uL Eos # (Auto) 0.1 (0.0-0.7) 10^3/uL Baso # (Auto) 0.0 (0.0-0.1) 10^3/uL Absolute Nucleated RBC 0.00 x10^3/uL Nucleated RBC % 0.0 /100WBC Sodium Potassium Chloride Carbon Dioxide Anion Gap BUN Creatinine Estimated GFR (MDRD) Glucose Calcium Phosphorus (2.5-5.0) mg/dL Magnesium (1.7-2.3) mg/dL Albumin (3.2-5.5) g/dL ABX Reporting Has patient been on IV antibiotics over the past 48 hours?: No Sepsis Event Note (H) - Evaluation Current Stage of Sepsis: Ruled out Assessment/Plan - Problem List (1) Hyponatremia Impression: The patient's workup is complete. 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 The patient will continue on a fluid restriction. Her sodium level actually went from 127- 124. Will place her on some sodium chloride tablets today. Will continue to check her sodium level every 8 hours today. I would like her sodium level to be greater than 130 by discharge (2) Migraine Impression: Improving. She has appropriate medications in place. (3) Hypertension Impression: The patient had markedly elevated blood pressures at the time of admission. This was likely due to the severity of her migraine headache. She is much improved at this point. Continue lisinopril 20 mg daily (4) Cervical radiculopathy Impression: The patient should continue workup as an outpatient. This is may be contributing to her migraine headaches. Her pain is primarily located in the o ccipital area. I have added muscle relaxers to her regimen and it seems to be helping (5) Insomnia Impression: Improving. Continue trazodone (6) Protein-calorie malnutrition, moderate Impression: The patient is at least moderately malnourished. She has muscle wasting and fat loss throughout her body. Continue to encourage good p.o. intake. Will get the clinical dietitian to see her. BMI is only 18.7 (7) Hypophosphatemia Impression: Will give the patient some Neutra-Phos today. Will check a level in the morning (8) Hypomagnesemia Impression: This will be repleted with IV magnesium sulfate today. She will have a level drawn in the morning Disposition: Inpatient hospitalization remains necessary. Overall the patient's sodium level remains low and actually went down overnight. She needs further inpatient treatment in the hospital to stabilize her sodium levels. Time spent: 35 minutes
[2024-03-11] MEDS: NEUTRA-PHOS 250 MG TABLET PO SCH (16:15)
[2024-03-12 05:43] LABS: BASOPHILS # (AUTO) 0.1 10^3/uL (0.0-0.1); BASOPHILS % (AUTO) 1.6 %; EOSINOPHILS # (AUTO) 0.1 10^3/uL (0.0-0.7); EOSINOPHILS % (AUTO) 2.1 %; HGB - HEMOGLOBIN 11.6 g/dL (12.0-16.0); LYMPHOCYTES # (AUTO) 1.5 10^3/uL (1.5-3.5); LYMPHOCYTES % (AUTO) 40.2 %; MEAN CORPUSCULAR HEMOGLOBIN 33.4 pg (27.0-31.0); MEAN CORPUSCULAR HGB CONC 35.2 g/dL (32.0-36.0); MEAN CORPUSCULAR VOLUME 95.1 fL (81.0-99.0); MEAN PLATELET VOLUME 9.2 fL (7.9-10.8); MONOCYTES # (AUTO) 0.6 10^3/uL (0.0-1.0); MONOCYTES % (AUTO) 16.1 %; NEUTROPHILS # (AUTO) 1.5 10^3/uL (1.5-6.6); NEUTROPHILS % (AUTO) 39.7 %; PLT - PLATELET COUNT 212 10^3/uL (130-450); RED BLOOD COUNT 3.47 10^6/uL (4.20-5.40); RED CELL DISTRIBUTION WIDTH 13.2 % (12.0-15.0); WHITE BLOOD COUNT 3.8 x10^3/uL (4.8-10.8)
[2024-03-12 06:01] LABS: ALBUMIN 3.4 g/dL (3.2-5.5); CALCIUM 8.3 mg/dL (8.5-10.3); CREATININE 0.6 mg/dL (0.6-1.3); MAGNESIUM 1.7 mg/dL (1.7-2.3); PHOSPHORUS 3.1 mg/dL (2.5-5.0); POTASSIUM 4.1 mmol/L (3.5-4.5)
[2024-03-12 07:34] VITALS: BP 132/85; O2SAT 98
--- NOTE | 2024-03-12 08:20 | Discharge Plan ---
Discharge Plan Problem Reviewed?: Yes Disposition: Home, Self Care Condition: Good Prescriptions: Butalb/Acetam/Caff 50/325/40 [Fioricet] 1 tab PO Q4H PRN #30 tab PRN Reason: Headache Magnesium Oxide [Mag Ox] 400 mg PO DAILYWM #30 tab methocarbamoL [Robaxin] 1,000 mg PO Q8H PRN #60 tab PRN Reason: Headache Diet: Regular Activity Restrictions: Activity as Tolerated Shower Restrictions: No Driving Restrictions: No Plan of Treatment: You were admitted with elevated blood pressure and severe headache. This has been treated and stabilized. I would recommend following up with her primary care physician for further workup regarding her cervical spine which likely is contributing to your headaches. I am going to write you a prescription for muscle relaxers at discharge. An incidental finding on your lab work was rather significant hyponatremia. This was treated and your sodium level is at an appropriate level for discharge at 133 today. I would recommend following up with your primary care physician and having your sodium followed closely in the outpatient setting. Assessment: 1. 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 She was initially given 1 L of normal saline in the emergency room and her sodium quickly corrected from 1 20-1 30. She was given some DDAVP. She was then placed on a fluid restriction. Her sodium level drifted back down to 124. Yesterday she was placed on sodium chloride tablets 1 g 3 times daily. This morning her sodium level is 134. I am not recommending any further sodium tablets. She should follow-up with her primary care physician and have her sodium followed closely as an outpatient. 2. Migraine headaches She had a migraine at the time of admission. This is resolved by the time of discharge 3. Hypertension She presented with markedly elevated blood pressures that I believe are related to the severity of her headache. Once we get her headache under better control the patient's blood pressure stabilized. She will continue her home dose of lisinopril 20 mg daily 4. Cervical radiculopathy The patient should continue workup as an outpatient. I believe this may be contributing to her severe headaches. Her pain is primarily located in the occipital area and cervical spine. I have added muscle relaxers to her regimen and written a prescription at discharge. This seems to help 5. Insomnia Improving. Continue trazodone 75 mg nightly 6. Moderate protein calorie malnutrition The patient is at least moderately malnourished. She has significant muscle wasting and fat loss throughout her body. She has had multiple electrolyte abnormalities. Continue to encourage good p.o. intake. Would recommend her seeing a dietitian as an outpatient 7. Hypophosphatemia Repleted and resolved 8. Hypomagnesemia This was repleted with IV magnesium sulfate. I am going to send her out on p.o. magnesium oxide to supplement at home 9. Hypokalemia Repleted and resolved No Smoking: If you smoke, Please STOP! Call for help. Follow-up with: Masha Cherry MD [Primary Care Provider] -
--- NOTE | 2024-03-12 08:52 | DISCHARGE SUMMARY ---
Discharge Summary Admit Date: 03/09/24 Discharge Date: 03/12/24 Discharging Provider: Irais Faye PA-C Primary Care Provider: Dr Masah Cherry Code Status: Attempt Resuscitation Condition at Discharge: Good Discharge Disposition: 01 Home, Self Care - DIAGNOSES Discharge Diagnoses with Status of Each Condition: 1. 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 She was initially given 1 L of normal saline in the emergency room and her sodium quickly corrected from 1 20-1 30. She was given some DDAVP. She was then placed on a fluid restriction. Her sodium level drifted back down to 124. Yesterday she was placed on sodium chloride tablets 1 g 3 times daily. This morning her sodium level is 134. I am not recommending any further sodium tablets. She should follow-up with her primary care physician and have her sodium followed closely as an outpatient. 2. Migraine headaches She had a migraine at the time of admission. This is resolved by the time of discharge. Fioricet worked well for her headaches and I have written a prescription for this as well as a muscle relaxer at discharge 3. Hypertension She presented with markedly elevated blood pressures that I believe are related to the severity of her headache. Once we get her headache under better control the patient's blood pressure stabilized. She will continue her home dose of lisinopril 20 mg daily 4. Cervical radiculopathy The patient should continue workup as an outpatient. I believe this may be contributing to her severe headaches. Her pain is primarily located in the occipital area and cervical spine. I have added muscle relaxers to her regimen and written a prescription at discharge. This seems to help 5. Insomnia Improving. Continue trazodone 75 mg nightly 6. Moderate protein calorie malnutrition The patient is at least moderately malnourished. She has significant muscle wasting and fat loss throughout her body. She has had multiple electrolyte abnormalities. Continue to encourage good p.o. intake. Would recommend her seeing a dietitian as an outpatient 7. Hypophosphatemia Repleted and resolved 8. Hypomagnesemia This was repleted with IV magnesium sulfate. I am going to send her out on p.o. magnesium oxide to supplement at home 9. Hypokalemia Repleted and resolved - HPI History of Present Illness: From the admission HP: Ms. Gerardo is a 79-year-old female presenting to the emergency department with headache and elevated blood pressure readings. She states she woke up with a headache and elevated BP @ 197 systolic at 01:00 this am. She has nausea, no vomiting, with photohobia and left sided headache that radiates from the base of her skull to behind her right ear. She denies phonophobia, vision changes, aura, dizziness, shortness of breath, chest pain, palpitations, or abdominal pain. She states she had 3 BMs last night which is more than normal, denies diarrhea or constipation.Patient denies any chest pain, shortness of breath. She notes her blood pressure readings have been high in the 170s. She is on lisinopril 20 once a day however took 2 doses last night due to persistently elevated blood pressure readings. She denies missing any doses of lisinopril. 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 She had been taking trazadone 1.5 tabs at night for insomnia and depression and stopped this 3 days ago as she was told it was not compatible with meloxicam. She also has a new puppy which she got 4 days ago and it has been keeping her up at night. She reports feeling unusually tired yesterday and got some pedialyte as she was feeling run down. She denies any recent illness, weight loss, changes in diet, increase in thirst, urinary frequency, dysuria, or fever. She has a hx of migraine headaches and takes fio rinol with codeine but it only works if she takes it at the beginnin. They usually last 3 days when she gets them and she has about 4 per year once she was postmenopausal. She does not take any migraine prevention medication. She is being admitted for hyponatremia and will be on a fluid restriction. She still complains of a 5/10 headache, down from an 8/10, and feels significantly improved after getting Benadryl and Reglan in the ED along with a liter of fluid. - HOSPITAL COURSE Hospital Course: The patient presented to the emergency room and had a severe migraine headache and uncontrolled hypertension. Over the next couple of days her headache re solved and was improved. Incidentally noted on her labs was a rather low sodium level of 120. She received 1 L of normal saline in the emergency room and her sodium level quickly corrected to 130. She was given DDAVP. The next day her sodium level was 127 but then drifted down to 124. The patient was placed on fluid restriction. Of note the patient did we did drink quite a bit of water, possibly too much and has been advised to follow a 1500 mL fluid restriction at discharge. The patient was started on sodium chloride tablets and on the day of discharge her sodium is stable at 133. Workup revealed that the patient likely has SIADH. This will need to be monitored closely as an outpatient and her outpatient doctor can continue workup as to the source of the SIADH. At this point the patient is quite stable. Her headache has resolved. Her sodium has improved. She will be discharged today in stable condition. - ALLERGIES Allergies/Adverse Reactions: Allergies Allergy/AdvReac Type Severity Reaction Status Date / Time No Known Drug Allergies Allergy Verified 03/09/24 13:12 - MEDICATIONS Home Medications: Ambulatory Orders Medication Instructions Recorded Confirmed Lisinopril [Zestril] 20 mg PO DAILY 03/09/24 03/09/24 Estrogens, Conjugated [Premarin] 0.625 mg PO DAILY PM 03/10/24 03/10/24 traZODone [Desyrel] 75 mg PO DAILY 03/10/24 03/10/24 Butalb/Acetam/Caff 50/325/40 1 tab PO Q4H PRN #30 tab 03/12/24 [Fioricet] Magnesium Oxide [Mag Ox] 400 mg PO DAILYWM #30 tab 03/12/24 Meloxicam [Mobic] 7.5 mg PO DAILY tab 03/12/24 methocarbamoL [Robaxin] 1,000 mg PO Q8H PRN #60 tab 03/12/24 - PHYSICAL EXAM AT DISCHARGE General Appearance: positive: No acute distress Eyes Bilateral: positive: Normal inspection ENT: positive: Other (She has bitemporal muscle wasting bilaterally) Neck: positive: Nml inspection, Thyroid nml, No JVD Respiratory: positive: Chest non-tender, No respiratory distress, Breath sounds nml. negative: Wheezes, Rales, Rhonchi Cardiovascular: positive: Regular rate & rhythm, No murmur, No gallop. negative: Friction rub Abdomen: positive: Non-tender, No organomegaly, Nml bowel sounds Skin: positive: Color nml, No rash, Warm, Dry Extremities: positive: Non-tender, Full ROM Neurologic/Psychiatric: positive: Oriented x3, CN's nml (2-12) - LABS Result Diagrams: 03/12/24 05:26 03/12/24 05:26 - SEPSIS Current Stage of Sepsis: Ruled out - FOLLOW UP Follow Up: The patient should follow-up with Dr. Masha Cherry within 1 week - TIME SPENT Time Spent in Discharge (Minutes): 35
== END 2024-03-12 10:15 | disposition home or self-care (01) | DRG 644 ==
LOC: ED 12:58 → MS2 17:04
PROVIDERS: ADMIT Physician Assistant; ATTEND Physician Assistant
DX: E87.1 Hypo-osmolality and hyponatremia (principal); E22.2 Syndrome of inappropriate secretion of antidiuretic hormone; E44.0 Moderate protein-calorie malnutrition; R42 Dizziness and giddiness; Z68.1 Body mass index [BMI] 19.9 or less, adult; G43.909 Migraine, unspecified, not intractable, without status migrainosus; I10 Essential (primary) hypertension; M54.12 Radiculopathy, cervical region; G47.00 Insomnia, unspecified; E83.39 Other disorders of phosphorus metabolism; E87.6 Hypokalemia; E83.42 Hypomagnesemia; H53.149 Visual discomfort, unspecified; F32.A Depression, unspecified; M62.50 Muscle wasting and atrophy, not elsewhere classified, unspecified site
CPT/HCPCS: 36415; 70450; 71045; 80053; 80069; 82533; 82570; 83690; 83735; 83930; 83935; 84295; 84300; 84443; 85025; 96374; 96375; 99285; A9270; J1200; J2597; J2765

== ENCOUNTER 2024-03-21 08:58 | Outpatient (CLI) | payer MEDICARE ==
[2024-03-21 16:08] LABS: MAGNESIUM 1.7 mg/dL (1.7-2.3); PHOSPHORUS 4.1 mg/dL (2.5-5.0)
[2024-03-21 16:10] LABS: ALBUMIN 4.1 g/dL (3.2-5.5); ALBUMIN/GLOBULIN RATIO 2.1 (1.0-2.2); BILIRUBIN,TOTAL 0.3 mg/dL (0.2-1.0); CALCIUM 9.3 mg/dL (8.5-10.3); CREATININE 0.7 mg/dL (0.6-1.3); POTASSIUM 3.8 mmol/L (3.5-4.5); TOTAL PROTEIN 6.1 g/dL (6.4-8.9)
[2024-03-22 04:10] LABS: VITAMIN D 25-HYDROXY 52.3 ng/mL (30.0-100.0)
== END 2024-03-21 08:59 | disposition home or self-care (01) ==
LOC: LAB.S 08:58
PROVIDERS: ATTEND Internal Medicine
DX: E87.1 Hypo-osmolality and hyponatremia (principal); E83.51 Hypocalcemia; E87.8 Other disorders of electrolyte and fluid balance, not elsewhere classified
CPT/HCPCS: 36415; 80053; 82306; 82330; 83735; 84100; 84134

== ENCOUNTER 2024-03-26 08:00 | Outpatient (CLI) | payer MEDICARE ==
[2024-03-27 14:08] LABS: CALCIUM URINE 4.5 mg/dL (Not Estab.)
== END 2024-03-26 23:59 | disposition home or self-care (01) ==
LOC: LAB.R 08:00
PROVIDERS: ATTEND Internal Medicine
DX: E83.51 Hypocalcemia (principal)
CPT/HCPCS: 81599; 82340